=== PATIENT | male | born 1970 | race Caucasian/White ===

== ENCOUNTER 2017-11-10 21:37 | Emergency (ER) | payer BC ==
[2017-11-10] MEDS ORDERED: Ibuprofen 800 MG TAB ONE (21:52)
--- NOTE | 2017-11-10 22:14 | RAD ---
THREE VIEWS OF THE LEFT LONG FINGER: 11/10/17 INDICATION: Jammed finger in a truck door with left finger pain. FINDINGS: No acute fracture or subluxation is evident. No definite radiopaque foreign body is evident. On the l ateral projection, there is stippled radiodensities likely related to cassette artifact overlying the distal phalanx of the left long finger. IMPRESSION: No acute osseous abnormality. POS: [facility]
== END 2017-11-10 22:20 | disposition home or self-care (01) ==
LOC: SCSER 21:37
DX: S60.132A Contusion of left middle finger with damage to nail, initial encounter (principal); W23.0XXA Caught, crushed, jammed, or pinched between moving objects, initial encounter